=== PATIENT | male | born 1955 | race Caucasian/White ===

== ENCOUNTER → 2017-03-28 | Day surgery (SDC) | payer OTHER ==
[~2017-03-28] MED LIST: B-121000 MC1 PO; DESYREL50 MG PO; LIPITOR20 MG PO; ZESTRIL10 M2 PO
--- NOTE | ~2017-03-28 | OR ---
Unit #: [id number] #: [id number] Patient: AMADO SHELTON [id number] [address] [place], [place] [address] [id number] O MR#: [id number] NAME: AMADO SHELTON ROOM: Date of Procedure: 03/28/2017 Admission Date: 03/28/2017 Surgeon: Angel Ching M.D. : 1955 Attending Physician: Angel Ching M.D. Primary Care Physician: Kim Alexander Aprn OPERATIVE REPORT PREOPERATIVE DIAGNOSIS Screening colonoscopy. POSTOPERATIVE DIAGNOSIS Screening colonoscopy. PROCEDURES PERFORMED 1. Colonoscopy to cecum. 2. Polypectomy with electrocautery snare at 45 cm. ANESTHESIA Monitored anesthesia care. FINDINGS The patient was found to have a rare scattered diverticula throughout the colon as well as mild internal hemorrhoids. 3 mm polyp was excised completely at 45 cm with good hemostasis. SPECIMENS Sent to pathology. COMPLICATIONS None apparent. CONDITION The patient tolerated the procedure well. INDICATIONS FOR PROCEDURE The patient is a 62-year-old white male, who presents at this time for his initial screening colonoscopy. DESCRIPTION OF PROCEDURE After obtaining informed consent, the patient was brought to the endoscopy suite and after adequate monitored anesthesia care was obtained, had the colonoscope placed through the anus and slowly advanced to the level of the cecum without difficulty with the lumen always in view. The cecum was normal as was the ileocecal valve. The patient had a rare scattered diverticula present throughout the colon. They were not very numerous. They were very shallow. Other than this, there was no abnormality seen in the ascending colon, hepatic flexure, transverse colon, splenic flexure, or descending colon. In the sigmoid colon at 45 cm, there was a 3 mm Unit #: [id number] #: [id number] Patient: AMADO SHELTON polyp found. It was excised completely with electrocautery snare, retrieved and sent to pathology. There was good hemostasis. The remaining portion of the sigmoid colon, rectosigmoid, and rectum were all within normal limits. On retroflexing in the rectum to the anorectal junction, the patient was found to have some mild internal hemorrhoids. The scope was removed without difficulty. The patient tolerated the procedure well and went from the endoscopy suite to recovery area in stable condition. RECOMMENDATIONS High-fiber diet, lots of liquids, tucks or wipes p.r.n. Call Saturday for pathology. Diverticular sheet given. Dictated by... Taz Mckeon/dhara TD: 03/28/2017 16:27 JOB #: [id number] CC: [facility] OPERATIVE REPORT Page 1 of 1 X Angel Ching MD X PROCEDURE OPERATIVE NOTE
== END | disposition home or self-care (01) ==
LOC: COPS 11:58
DX: Z12.11 Encounter for screening for malignant neoplasm of colon (principal); D12.5 Benign neoplasm of sigmoid colon; K57.30 Diverticulosis of large intestine without perforation or abscess without bleeding; K64.8 Other hemorrhoids; I10 Essential (primary) hypertension; F17.200 Nicotine dependence, unspecified, uncomplicated
CPT/HCPCS: 88305; J2250